=== PATIENT | male | born 1960 | race Hispanic/Latino ===

== ENCOUNTER → 2020-04-23 | Outpatient (CLI) | payer OTHER | END | disposition home or self-care (01) | LOC: EDSEX 13:16 → OIH 13:16 | PROVIDERS: ATTEND Internal Medicine | DX: S99.822A Other specified injuries of left foot, initial encounter (principal); S99.821A Other specified injuries of right foot, initial encounter; M06.4 Inflammatory polyarthropathy; M19.072 Primary osteoarthritis, left ankle and foot; M19.042 Primary osteoarthritis, left hand; M19.041 Primary osteoarthritis, right hand; M19.071 Primary osteoarthritis, right ankle and foot; X58.XXXA Exposure to other specified factors, initial encounter; Y93.89 Activity, other specified; Y92.89 Other specified places as the place of occurrence of the external cause; Y99.8 Other external cause status | CPT/HCPCS: 73630 ==

== ENCOUNTER → 2025-01-07 | Outpatient (CLI) | payer OTHER ==
[~2025-01-07] MED LIST: IOHEXOL-350 75 ML VIAL IV ONE
--- NOTE | 2025-01-08 14:55 | HMCIMG ---
EXAM: CT Abdomen with IV contrast CLINICAL HISTORY: Hepatomegaly, not elsewhere classified TECHNIQUE: Axial computed tomography images of the abdomen and pelvis with intravenous contrast. CONTRAST: with intravenous contrast. COMPARISON: None provided. FINDINGS: Lungs (visualized bases): Minimal bilateral pleural effusion.Multiple coarse ground-glass opacities in the bilateral lower lobes. Liver: Mildly shrunken liver, irregular and nodular margin, measures approximately. 11.5 cm. Multiple heterogeneously enhancing centrally and peripherally hypodense lesions are scattered in the left lobe and segment 7 of the right lobe. Largest lesion in segments 2 and 3 of the left lobe, approx. 11.5 x 11.7 mm by 12.2 cm (TR AP CC dimension).Similar lesions in the tail of Christian's left lobe. Homogeneous late arterial phase hyperenhancing lesion in segment 7 of the right lobe, 2.4 x 2.8 cm. Multiple tortuous periportal, peripancreatic, perisplenic, paraumbilical, retroperitoneal, and mesenteric collaterals. Portal vein not visualized, replaced by multiple collaterals, likely portal cavernoma formation, intrahepatic biliary dilatation. Gallbladder: Distended gallbladder with hyperdense calculus approx. 1.5 x 2 cm. Bile Ducts: No intrahepatic or extrahepatic biliary dilatation. Pancreas: No focal lesion. No peripancreatic fluid collection. Spleen: Spleen measures 18.8 cm, likely gross splenomegaly. Multiple perisplenic tortuous collaterals. Adrenals: Bilateral adrenal bulkiness. Kidneys: The bilateral kidney appears normal in size, shape, and corticomedullary differentiation. No hydronephrosis. Ureters: Both proximal ureters normal in course and caliber. Stomach: No mass or ulceration. Bowel: No evidence of obstruction, mass, or inflammatory changes. Peritoneum: Extensive mesenteric, retroperitoneal, perisplenic, periportal, peripancreatic, and paraumbilical collaterals. Lymph Nodes: Retroperitoneal and mesenteric lymphadenopathy. Bones: Degenerative changes in the spine, reduced L5-S1 intervertebral disc space with a vacuum phenomenon lytic or sclerotic lesions. Vasculature: Atherosclerotic vessel wall calcification of the abdominal aorta.IMPRESSION: 1. Cirrhosis with portal hypertension and cavernous transformation of the portal vein. 2. Multiple hepatic lesions, the largest measuring 11.5 x 11.7 x 12.2 cm in the left lobe, concerning for multifocal hepatocellular carcinoma. 3. Splenomegaly measuring 18.8 cm. 4. Extensive portosystemic collaterals. 5. Minimal bilateral pleural effusions with lower lobe ground-glass opacities. 6. Cholelithiasis with 1.5 x 2 cm gallstone. 7. Retroperitoneal and mesenteric lymphadenopathy. /[place]
== END | disposition home or self-care (01) ==
LOC: RAH 07:03
PROVIDERS: ATTEND Internal Medicine
DX: C22.0 Liver cell carcinoma (principal); K80.20 Calculus of gallbladder without cholecystitis without obstruction; K76.6 Portal hypertension; R16.2 Hepatomegaly with splenomegaly, not elsewhere classified; K82.8 Other specified diseases of gallbladder; M47.817 Spondylosis without myelopathy or radiculopathy, lumbosacral region; I70.0 Atherosclerosis of aorta; I69.322 Dysarthria following cerebral infarction; I67.1 Cerebral aneurysm, nonruptured; J84.10 Pulmonary fibrosis, unspecified; G56.40 Causalgia of unspecified upper limb; K74.60 Unspecified cirrhosis of liver; G47.09 Other insomnia; R77.1 Abnormality of globulin
CPT/HCPCS: 74160; Q9967

== ENCOUNTER 2025-04-08 11:26 | Inpatient (IN) | payer OTHER ==
[~2025-04-08] VITALS: Ht 172.7 cm; Wt 102.7 kg
--- NOTE | 2025-04-08 11:47 | ERN ---
ED Note History of Present Illness Stated Complaint: SENT BY DR ROBERTS Chief Complaint: Other Problems Time Seen by MD: 11:29 Dictation: PATIENT IS A 64-YEAR-OLD MALE COMING IN TODAY FROM OFFICE FOR ELEVATED LABS. THE PATIENT STATES THEY HE HAD HAD A VIDEO CONFERENCE WITH THE PA, THAT IS SOMETHING HAD DOUBLED AND TO GO TO THE EMERGENCY ROOM. STATES HE HAS A HISTORY OF NEWLY DIAGNOSED LIVER CA IN HIS PENDING THE INITIAL TREATMENT FROM THE ONCOLOGISTS, CURRENTLY HE HAS BEEN STAGED. PATIENT NOTED TO BE DEBILITATED AND JAUNDICED I CALLED THE ONCOLOGISTS OFFICE AND SPOKE TO TATY, SHE SAYS THAT PATIENT'S LFTS HAVE DOUBLED INCLUDING HIS BILIRUBIN AND HE WAS EVALUATED BY THE PA AND TOLD TO COME TO THE EMERGENCY ROOM FOR FURTHER EVALUATION AND POSSIBLE ADMISSI ON. Allergies: Coded Allergies: No Known Drug Allergies (Unverified Allergy, Unknown, 03/13/25) Home Meds No Active Prescriptions or Reported Meds Past Medical History Past Medical History: Cancer, Other Additional Past Medical Hx: H PYLORI, POOR HISTORIAN Surgical History: None RN Note Reviewed/Agreed w/PFSH: Yes Review of System Dictation CONSTITUTIONAL: NEGATIVE EXCEPT FOR HPI GB W HEAD/FACE: NEGATIVE EXCEPT FOR HPI EENT: NEGATIVE EXCEPT FOR HPI RESPIRATORY: NEGATIVE EXCEPT FOR HPI GASTROINTESTINAL/ABDOMINAL: NEGATIVE EXCEPT FOR HPI GENITOURINARY: NEGATIVE EXCEPT FOR HPI MUSCULOSKELETAL: NEGATIVE EXCEPT FOR HPI INTEGUMENTARY: NEGATIVE EXCEPT FOR HPI JAUNDICE NEUROLOGICAL/PSYCH: NEGATIVE EXCEPT FOR HPI HEMATOLOGIC/LYMPHATIC: NEGATIVE EXCEPT FOR HPI ALL SYSTEMS NEGATIVE, EXCEPT NOTED ABOVE. 13 POINT REVIEW OF SYSTEMS ASSESSED AND ALL NEGATIVE EXCEPT FOR ABOVE. Initial Vital Sign VS Vital Signs Date Time Temp Pulse Resp B/P (MAP) Pulse Ox O2 Delivery O2 Flow Rate FiO2 04/08/25 11:30 99.0 88 18 103/64 97 Room Air* 0 21 Physical Exam Dictation VITAL SIGNS REVIEWED GENERAL APPEARANCE: ALERT, ORIENTED X 3, NO ACUTE DISTRESS, WELL DEVELOPED, NOURISHED. HEAD AND FACE: NON-TRAUMATIC. EYES: PERRL, PINK CONJUNCTIVAS, EYELID NO TRAUMA, ANTERIOR CHAMBER WITH ARCUS SENILIS. EARS: PINNAS INTACT AND NO SIGNS OF TRAUMA OR ERYTHEMA EAR CANALS CLEAR AND NO DISCHARGE TM NO ERYTHEMA NOSE: NO DISCHARGE, NO BLEEDING. OROPHARYNX: MOUTH NORMAL, TONGUE PINK, PHARYNX CLEAR,NO ERYTHEMA, TONSILS NO EXUDATES, NO ABSCESSES NOTED, MUCOUS MEMBRANE MOIST NECK: SUPPLE, NON-TENDER, NO THYROMEGALY, NO MASSES, NO JVD, NO BRUITS BREAST:DEFERRED CHEST:NO TENDERNESS, NO CREPITUS, NO PARADOXICAL MOVEMENT, NO RETRACTIONS LUNGS:CLEAR, WELL-VENTILATED, SYMMETRIC, NO RALES, NO WHEEZING, NO RHONCHI, NO STRIDOR, GOOD BREATH SOUNDS BILATERALLY HEART: REGULAR RATE, REGULAR RHYTHM, NO MURMUR, NO GALLOPS VASCULAR: NO PERIPHERAL EDEMA, ABDOMEN: SOFT, POSITIVE BOWEL SOUNDS, NONDISTENDED, NO GUARDING, NONTENDER, NO REBOUND, NO MASSES MILD HEPATOMEGALY, NO SPLENOMEGALY, NO LEYVA'S SIGN, NO HERNIAS. RECTAL: DEFERRED GENITAL: DEFERRED NEUROLOGICAL: NORMAL SPEECH, MOTOR FUNCTION INTACT, SENSORY FUNCTION INTACT MUSCULOSKELETAL: NECK NONTENDER, FULL RANGE OF MOTION, BACK NONTENDER, FULL RANGE OF MOTION, EXTREMITIES: NONTENDER, FULL RANGE OF MOTION SKIN: COLOR JAUNDICE LYMPHATIC: DEFERRED Results (Laboratory/Radiology) Laboratory/Radiology Laboratory Tests Test 04/08/25 11:52 04/08/25 12:08 White Blood Count 4.6 K/uL (4.8-10.8) L Red Blood Count 3.21 MIL/uL (4.50-6.20) L Hemoglobin 10.4 g/dL (14.0-18.0) L Hematocrit 32.7 % (42-54) L Mean Corpuscular Volume 101.9 fL (79-99) H Mean Corpuscular Hemoglobin 32.4 pg (27.0-33.0) Mean Corpuscular Hemoglobin Concent 31.8 g/dL (32.0-36.0) L Red Cell Distribution Width 22.5 % (11.0-15.5) H Platelet Count 141 K/uL (130-400) Mean Platelet Volume 11.2 fL (7.5-10.5) H Immature Granulocyte % (Auto) 1.5 % (0-1) H Neutrophils (%) (Auto) 64.5 % (40.0-77.0) Lymphocytes (%) (Auto) 22.2 % (21.0-51.0) Monocytes (%) (Auto) 7.3 % (3.0-13.0) Eosinophils (%) (Auto) 3.0 % (0.0-8.0) Basophils (%) (Auto) 1.5 % (0.0-5.0) Neutrophils # (Auto) 3.0 K/uL (1.8-7.7) Lymphocytes # (Auto) 1.0 K/uL (1.0-4.8) Monocytes # (Auto) 0.3 K/uL (0.1-1.0) Eosinophils # (Auto) 0.14 K/uL (0.00-0.70) Basophils # (Auto) 0.07 K/uL (0.00-0.20) Absolute Immature Granulocyte (auto 0.07 K/uL (0-1) Segmented Neutrophils % 69 % (40-70) Lymphocytes % (Manual) 18 % (22-44) L Monocytes % (Manual) 6 % (2-9) Eosinophils % (Manual) 5 % (1-6) Basophils % (Manual) 1 % (0-2) Myelocytes % 1 % (0-0) H Nucleated Red Blood Cells 0.4 % (0.0-0.19) H Differential Comment MANUAL DIFFERENTIAL White Cell Morphology Comment Platelet Morphology Comment ADEQUATE Red Blood Cell Morphology See comments Prothrombin Time 12.1 SEC (9.6-11.6) H Prothromb Time International Ratio 1.15 (0.85-1.15) Activated Partial Thromboplast Time 30.7 SEC (26.3-35.5) Sodium Level 127 mmol/L (136-145) L Potassium Level 4.7 mmol/L (3.5-5.1) Chloride Level 98 mmol/L (101-111) L Carbon Dioxide Level 22 mmol/L (21-32) Blood Urea Nitrogen 20 mg/dL (7-18) H Creatinine 1.3 mg/dL (0.5-1.3) Glomerular Filtration Rate Calc 61 mL/min (>90) Random Glucose 111 mg/dL (70-105) H Total Calcium 8.9 mg/dL (8.5-10.1) Total Bilirubin 7.5 mg/dL (0.2-1.0) H Aspartate Amino Transf (AST/SGOT) 133 U/L (10-37) H Alanine Aminotransferase (ALT/SGPT) 22 U/L (12-78) Alkaline Phosphatase 155 U/L (50-136) H Ammonia < 10 umol/L (11-32) L Total Protein 9.3 g/dL (6.0-8.3) H Albumin 2.0 g/dL (3.5-5.0) L Lipase 39 U/L (16-77) Urine Color NICOLE (YELLOW) H Urine Appearance CLOUDY (CLEAR) H Urine pH 6.0 (5.0-8.0) Urine Specific [place] 1.025 (1.001-1.031) Urine Protein 30 mg/dL (NEGATIVE) H Urine Glucose (UA) NEGATIVE mg/dL (NEGATIVE) Urine Ketones 5 mg/dL (NEGATIVE) H Urine Occult Blood SMALL (NEGATIVE) H Urine Nitrate POSITIVE (NEGATIVE) H Urine Bilirubin MODERATE mg/dL (NEGATIVE) H Urine Urobilinogen 1.0 mg/dL (0.2-1.0) Urine Leukocyte Esterase NEGATIVE Gloria/uL Urine RBC 6-10 /HPF (0-1) H Urine WBC 0-1 /HPF (0-1) Urine Squamous Epithelial Cells Rare /HPF (0-2) Urine Bacteria Few /HPF (None Seen) Labs Reviewed?: Yes ED Course ED Course Orders Procedure Category Date Status Time Pt And Ptt LAB 04/08/25 Complete 11:43 Comprehensive LAB 04/08/25 Complete Metabolic Panel 11:43 Urinalysis Profile LAB 04/08/25 Complete 11:43 Lipase LAB 04/08/25 Complete 11:43 Cbc With Differential LAB 04/08/25 Complete 11:43 Ammonia LAB 04/08/25 Complete 11:43 Manual Differential LAB 04/08/25 Complete 11:52 Culture Urine JUAN 04/08/25 Logged 12:21 0.9%Nacl 1000ml (Ns PHA 04/08/25 Complete 1000ml) 13:30 Current Medications Medications (Trade) Dose Ordered Sig/John Route PRN Reason Start Time Stop Time Status Last Admin Dose Admin Sodium Chloride 1,000 ml @ 0 mls/hr ONCE ONCE IV 04/08/25 13:30 04/08/25 13:31 DC Vital Signs Date Time Temp Pulse Resp B/P (MAP) Pulse Ox O2 Delivery O2 Flow Rate FiO2 04/08/25 11:30 99.0 88 18 103/64 97 04/08/25 11:30 99.0 88 18 103/64 97 Room Air* 0 21 1345/PATIENT WILL BE ADMITTED TO THE [facility]OSP[facility] FOR ACUTE KIDNEY INJURY, ELEVATED LFTS, HYPONATREMIA DEHYDRATION. 1350/SPOKE WITH REVIEWED LABS AND INTERVENTIONS FOR VENKATESH DEHYDRATION HE AGREED TO ADMIT PATIENT. Medical Decision Making MDM MDM: DIFFERENTIAL DIAGNOSIS: LIVER CA/ELEVATED LIVER FUNCTION TESTS/ANEMIA/COAGULOPATHY/ELECTROLYTE IMBALANCE/DEHYDRATION/JAUNDICE RATIONALE: TESTS CONSIDERED AND ORDERED SECONDARY TO SHARED DECISION MAKING INCLUDE: LABS, AND RADIOLOGY PREVIOUS OUTSIDE RECORDS REVIEWED: OLD ER VISITS. RISK OF COMPLICATION AND/OR MORBIDITY OR MORTALITY OF PATIENT MANAGEMENT: MILD MEDICATIONS-PER MEDICATION RECONCILIATION NEED FOR HOSPITALIZATION: PATIENT DOES MEET CRITERIA FOR HOSPITALIZATION. PATIENT WILL NEED TO BE ADMITTED FOR VENKATESH REHYDRATION AND EVALUATION OF LFTS ROTATION WITH THE ONCOLOGISTS NEED FOR EMERGENCY MAJOR/MINOR SURGERY: NO THERE ARE NO SOCIAL CONCERNS WITH THIS PATIENT. PRESCRIPTION DRUG MANAGEMENT PRESCRIPTIONS WILL INCLUDE SYMPTOMATIC CARE PATIENT'S PRIOR EXTERNAL MEDICAL RECORDS FROM OTHER ER VISITS WERE REVIEWED BY ME INDICATED. PRIOR TESTING AND RESULTS FROM PREVIOUS VISITS WERE REVIEWED. PRIOR TESTS WERE TAKEN INTO ACCOUNT WITH MEDICAL DECISION MAKING AND RESOURCE UTILIZATION, INDEPENDENT HISTORIAN/HISTORIANS WERE USED TO OBTAIN COMPLETE MEDICAL HISTORY. I INDEPENDENTLY INTERPRETED THE TEST THAT WERE PERFORMED, RESULTS WERE REVIEWED BY ME AND CONSIDERED FINDINGS ON RADIOLOGY IF ORDERED. MEDICAL MANAGEMENT AND EXAMINATION INTERPRETATION DISCUSSIONS WERE HAD BY ME WITH OTHER QUALIFIED HEALTHCARE PROFESSIONALS INDICATED FOR THE PATIENT'S CARE. DX & DISP Disposition: Inpatient Decision to Admit Time: 13:44 Departure Impression: Primary Impression: Hyponatremia Additional Impressions: Hypochloremia, Elevated LFTs, Stage 3 chronic kidney disease, Anemia of chronic renal failure, stage 3a, Liver cancer Condition: Stable Scripts No Active Prescriptions or Reported Meds Referrals: CINDY ROBERT MD (PCP) Time of Disposition: 13:44 I have reviewed the case, and I agree with, Diagnosis and Plan [employer] Apr 08, 2025 11:47
[2025-04-08 12:00] LABS: IMMATURE GRANULOCYTE ABSOLUTE 0.07 K/uL (0-1); NUCLEATED RED BLOOD CELLS 0.4 % (0.0-0.19); PLATELET COUNT (AUTO) 141 K/uL (130-400); RED BLOOD CELL COUNT(AUTO) 3.21 MIL/uL (4.50-6.20); RED CELL DISTRIBUTION WIDTH 22.5 % (11.0-15.5); WHITE BLOOD COUNT (AUTO) 4.6 K/uL (4.8-10.8)
[2025-04-08 12:09] LABS: CREATININE 1.3 mg/dL (0.5-1.3); GLOMERULAR FILTR. RATE CALC 61 mL/min (>90); GLUCOSE,RANDOM 111 mg/dL (70-105); SODIUM SERUM 127 mmol/L (136-145); UREA NITROGEN, BLOOD 20 mg/dL (7-18)
[2025-04-08 12:14] LABS: ASPARTATE AMINOTRANSFERASE 133 U/L (10-37); TOTAL PROTEIN, SERUM 9.3 g/dL (6.0-8.3)
[2025-04-08 12:19] LABS: GLUCOSE, URINE (UA) NEGATIVE (NEGATIVE); LEUKOCYTE ESTERASE ,URINE NEGATIVE Leu/uL (NEGATIVE); NITRATE,URINE POSITIVE (NEGATIVE); OCCULT BLOOD,URINE SMALL (NEGATIVE)
[2025-04-08 12:20] LABS: ADD UA MICROSCOPIC YES; APPEARANCE,URINE CLOUDY (CLEAR)
[2025-04-08 12:34] LABS: INR 1.15 (0.85-1.15)
[2025-04-08 12:48] LABS: SQUAMOUS EPITHELIAL CELL,UR Rare /HPF (0-2)
[2025-04-08 12:53] LABS: BASOPHILS % (MANUAL) 1 % (0-2); EOSINOPHILS % (MANUAL) 5 % (1-6); LYMPHOCYTES % (MANUAL) 18 % (22-44); MAN.DIFF COMMENT-IMPRESSION MANUAL DIFFERENTIAL; MONOCYTES % (MANUAL) 6 % (2-9); MYELOCYTES % 1 % (0-0); SEGMENTED NEUTROPHILS % 69 % (40-70)
[2025-04-08 12:54] LABS: PLATELET MORPHOLOGY COMMENT ADEQUATE
[2025-04-08] MEDS: 0.9%NACL 1000ML 1,000 ML IV ONE (14:16)
--- NOTE | 2025-04-08 14:39 | NUR ---
DCP:HOME Pt currently lives at home with his sister Lorraine Farrell [phone]. Pt receives $21 in SNAP benefits. Pt has a cane at home. Pt denies any home health or provider services. pt states that he is able to complete ADLs independently. PCP is Dr. Flowers and uses [facility] for any RX needs. At DC pt will want to go home and family can assist with transportation.
--- NOTE | 2025-04-08 14:49 | NUR ---
WAS INFORMED TO BRING HOME MEDS SOON POSSIBLE.
--- NOTE | 2025-04-08 15:57 | NUR ---
REPORT GIVEN TO DOMINGO GOVEA
[2025-04-08 16:00] VITALS: O2SAT 95
[2025-04-08 20:00] VITALS: BP 111/79; PULSE 91; RESP 18; TEMP 98.1; O2SAT 95
--- NOTE | 2025-04-08 21:52 | HP ---
HISTORY AND PHYSICAL NOTE DATE OF CONSULTATION: 04/08/25 REASON FOR CONSULTATION: Weakness HISTORY OF PRESENT ILLNESS: PATIENT IS A 64-YEAR-OLD MALE COMING IN TODAY FROM OFFICE FOR ELEVATED LABS. THE PATIENT STATES THEY HE HAD HAD A VIDEO CONFERENCE WITH THE PA, THAT IS SOMETHING HAD DOUBLED AND TO GO TO THE EMERGENCY ROOM. STATES HE HAS A HISTORY OF NEWLY DIAGNOSED LIVER CA IN HIS PENDING THE INITIAL TREATMENT FROM THE ONCOLOGISTS, CURRENTLY HE HAS BEEN STAGED. PATIENT NOTED TO BE DEBILITATED AND JAUNDICED I CALLED THE ONCOLOGISTS OFFICE AND SPOKE TO TATY, SHE SAYS THAT PATIENT'S LFTS HAVE DOUBLED INCLUDING HIS BILIRUBIN AND HE WAS EVALUATED BY THE PA AND TOLD TO COME TO THE EMERGENCY ROOM FOR FURTHER EVALUATION AND POSSIBLE ADMISSION. Allergies: Coded Allergies: No Known Drug Allergies (Unverified Allergy, Unknown, 03/13/25) Home Meds No Active Prescriptions or Reported Meds Past Medical History Past Medical History: Cancer, Other Additional Past Medical Hx: H PYLORI, POOR HISTORIAN Surgical History: None RN Note Reviewed/Agreed w/PFSH: Yes Review of System Dictation CONSTITUTIONAL: NEGATIVE EXCEPT FOR HPI GB W HEAD/FACE: NEGATIVE EXCEPT FOR HPI EENT: NEGATIVE EXCEPT FOR HPI RESPIRATORY: NEGATIVE EXCEPT FOR HPI GASTROINTESTINAL/ABDOMINAL: NEGATIVE EXCEPT FOR HPI GENITOURINARY: NEGATIVE EXCEPT FOR HPI MUSCULOSKELETAL: NEGATIVE EXCEPT FOR HPI INTEGUMENTARY: NEGATIVE EXCEPT FOR HPI JAUNDICE NEUROLOGICAL/PSYCH: NEGATIVE EXCEPT FOR HPI HEMATOLOGIC/LYMPHATIC: NEGATIVE EXCEPT FOR HPI ALL SYSTEMS NEGATIVE, EXCEPT NOTED ABOVE. 13 POINT REVIEW OF SYSTEMS ASSESSED AND ALL NEGATIVE EXCEPT FOR ABOVE. Initial Vital Sign VS Vital Signs Date Time Temp Pulse Resp B/P (MAP) Pulse Ox O2 Delivery O2 Flow Rate FiO2 04/08/25 11:30 99.0 88 18 103/64 97 Room Air* 0 21 ALLERGIES: Coded Allergies: No Known Drug Allergies (Unverified Allergy, Unknown, 03/13/25) HOME MEDS: No Active Prescriptions or Reported Meds VITAL SIGNS Vital Signs Date Time Temp Pulse Resp B/P (MAP) Pulse Ox O2 Delivery O2 Flow Rate FiO2 04/08/25 20:00 98.1 91 18 111/79 95 Room Air 04/08/25 16:00 95 Room Air* 0 21 04/08/25 15:42 99.0 88 18 106/72 97 Room Air* 0 21 04/08/25 11:30 99.0 88 18 103/64 97 04/08/25 11:30 99.0 88 18 103/64 97 Room Air* 0 21 PHYSICAL EXAM VITAL SIGNS REVIEWED GENERAL APPEARANCE: ALERT, ORIENTED X 3, NO ACUTE DISTRESS, WELL DEVELOPED, NOURISHED. HEAD AND FACE: NON-TRAUMATIC. EYES: PERRL, PINK CONJUNCTIVAS, EYELID NO TRAUMA, ANTERIOR CHAMBER WITH ARCUS SENILIS. EARS: PINNAS INTACT AND NO SIGNS OF TRAUMA OR ERYTHEMA EAR CANALS CLEAR AND NO DISCHARGE TM NO ERYTHEMA NOSE: NO DISCHARGE, NO BLEEDING. OROPHARYNX: MOUTH NORMAL, TONGUE PINK, PHARYNX CLEAR,NO ERYTHEMA, TONSILS NO EXUDATES, NO ABSCESSES NOTED, MUCOUS MEMBRANE MOIST NECK: SUPPLE, NON-TENDER, NO THYROMEGALY, NO MASSES, NO JVD, NO BRUITS BREAST:DEFERRED CHEST:NO TENDERNESS, NO CREPITUS, NO PARADOXICAL MOVEMENT, NO RETRACTIONS LUNGS:CLEAR, WELL-VENTILATED, SYMMETRIC, NO RALES, NO WHEEZING, NO RHONCHI, NO STRIDOR, GOOD BREATH SOUNDS BILATERALLY HEART: REGULAR RATE, REGULAR RHYTHM, NO MURMUR, NO GALLOPS VASCULAR: NO PERIPHERAL EDEMA, ABDOMEN: SOFT, POSITIVE BOWEL SOUNDS, NONDISTENDED, NO GUARDING, NONTENDER, NO REBOUND, NO MASSES MILD HEPATOMEGALY, NO SPLENOMEGALY, NO LEYVA'S SIGN, NO HERNIAS. RECTAL: DEFERRED GENITAL: DEFERRED NEUROLOGICAL: NORMAL SPEECH, MOTOR FUNCTION INTACT, SENSORY FUNCTION INTACT MUSCULOSKELETAL: NECK NONTENDER, FULL RANGE OF MOTION, BACK NONTENDER, FULL RANGE OF MOTION, EXTREMITIES: NONTENDER, FULL RANGE OF MOTION SKIN: COLOR JAUNDICE LYMPHATIC: DEFERRED LABORATORY RESULTS Laboratory Tests 04/08/25 11:52: White Blood Count 4.6, Red Blood Count 3.21, Hemoglobin 10.4, Hematocrit 32.7, Mean Corpuscular Volume 101.9, Mean Corpuscular Hemoglobin 32.4, Mean Corpuscular Hemoglobin Concent 31.8, Red Cell Distribution Width 22.5, Platelet Count 141, Mean Platelet Volume 11.2, Immature Granulocyte % (Auto) 1.5, Neutrophils (%) (Auto) 64.5, Lymphocytes (%) (Auto) 22.2, Monocytes (%) (Auto) 7.3, Eosinophils (%) (Auto) 3.0, Basophils (%) (Auto) 1.5, Neutrophils # (Auto) 3.0, Lymphocytes # (Auto) 1.0, Monocytes # (Auto) 0.3, Eosinophils # (Auto) 0.14, Basophils # (Auto) 0.07, Absolute Immature Granulocyte (auto 0.07, Segmented Neutrophils % 69, Lymphocytes % (Manual) 18, Monocytes % (Manual) 6, Eosinophils % (Manual) 5, Basophils % (Manual) 1, Myelocytes % 1, Nucleated Red Blood Cells 0.4, Differential Comment MANUAL DIFFERENTIAL, White Cell Morphology Comment , Platelet Morphology Comment ADEQUATE, Red Blood Cell Morphology See comments, Prothrombin Time 12.1, Prothromb Time International Ratio 1.15, Activated Partial Thromboplast Time 30.7, Sodium Level 127, Potassium Level 4.7, Chloride Level 98, Carbon Dioxide Level 22, Blood Urea Nitrogen 20, Creatinine 1.3, Glomerular Filtration Rate Calc 61, Random Glucose 111, Total Calcium 8.9, Total Bilirubin 7.5, Aspartate Amino Transf (AST/SGOT) 133, Alanine Aminot ransferase (ALT/SGPT) 22, Alkaline Phosphatase 155, Ammonia < 10, Total Protein 9.3, Albumin 2.0, Lipase 39 04/08/25 12:08: Urine Color NICOLE, Urine Appearance CLOUDY, Urine pH 6.0, Urine Specific [place] 1.025, Urine Protein 30, Urine Glucose (UA) NEGATIVE, Urine Ketones 5, Urine Occult Blood SMALL, Urine Nitrate POSITIVE, Urine Bilirubin MODERATE, Urine Urob ilinogen 1.0, Urine Leukocyte Esterase NEGATIVE, Urine RBC 6-10, Urine WBC 0-1, Urine Squamous Epithelial Cells Rare, Urine Bacteria Few PROBLEM LIST: (1) Hyponatremia ICD Codes: E87.1 - Hypo-osmolality and hyponatremia (2) Liver cancer ICD Codes: C22.9 - Malignant neoplasm of liver, not specified as primary or secondary (3) Elevated LFTs ICD Codes: R79.89 - Other specified abnormal findings of blood chemistry (4) Anemia of chronic renal failure, stage 3a ICD Codes: N18.31 - Chronic kidney disease, stage 3a; D63.1 - Anemia in chronic kidney disease (5) Stage 3 chronic kidney disease ICD Codes: N18.30 - Chronic kidney disease, stage 3 unspecified PLAN Declining functional status poor medical compliance consult palliative care CINDY ROBERT MD Apr 08, 2025 21:52
[2025-04-09] VITALS: BP 105/68; PULSE 67; RESP 21; TEMP 97.5
[2025-04-09 04:00] VITALS: BP 129/69; PULSE 92; RESP 18; TEMP 97.4
[2025-04-09 05:48] LABS: IMMATURE GRANULOCYTE ABSOLUTE 0.07 K/uL (0-1); NUCLEATED RED BLOOD CELLS 0.0 % (0.0-0.19); PLATELET COUNT (AUTO) 117 K/uL (130-400); RED BLOOD CELL COUNT(AUTO) 2.91 MIL/uL (4.50-6.20); RED CELL DISTRIBUTION WIDTH 23.2 % (11.0-15.5); WHITE BLOOD COUNT (AUTO) 4.1 K/uL (4.8-10.8)
[2025-04-09 06:02] LABS: ASPARTATE AMINOTRANSFERASE 126.0 U/L (10-37); CREATININE 1.3 mg/dL (0.5-1.3); GLOMERULAR FILTR. RATE CALC 61.0 mL/min (>90); GLUCOSE,RANDOM 114.0 mg/dL (70-105); SODIUM SERUM 129.0 mmol/L (136-145); TOTAL PROTEIN, SERUM 8.6 g/dL (6.0-8.3); UREA NITROGEN, BLOOD 17.0 mg/dL (7-18)
[2025-04-09 07:46] VITALS: BP 106/73; PULSE 85; RESP 18; TEMP 97.6
[2025-04-09] MEDS: 0.9%NACL 1000ML 1,000 ML IV SCH (09:34)
[2025-04-09 09:45] VITALS: O2SAT 95
[2025-04-09 11:44] VITALS: BP 97/67; PULSE 87; RESP 18; TEMP 98.4
--- NOTE | 2025-04-09 12:43 | CONS ---
GASTROENTEROLOGY CONSULTATION NOTE Date of Consultation: Apr 09, 2025 Time of Consultation: 12:43 History of Present Illness: [ ] Review of Systems: CONSTITUTIONAL: No malaise or change in sensation of wellbeing. ENMT: No rhinorrhea, otorrhea, sinus pain, ear ache. CARDIOVASCULAR: No angina, palpitations, orthopnea or paroxysmal dyspnea. RESPIRATORY: No SOB. GASTROINTESTINAL: No abdominal pain, nausea, vomiting, diarrhea, hematemesis, melena or change in the patient's habitual bowel movements consistency/number. GENITOURINARY: No dysuria, hematuria or change in bladder continence. MUSCULOSKELETAL: No new muscle pain or decrease in muscular strength. No new joint swelling, redness or tenderness. SKIN: No new rash. Past Medical History: [ ] Past Surgical History: [ ] Past Social History: [ ] Family History: [ ] Coded Allergies: No Known Drug Allergies (Unverified Allergy, Unknown, 03/13/25) Physical Exam: GEN: Awake, alert, oriented in person, time and place, and in no acute distress. HEENT: No sinus tenderness. Tympanic membranes were not examined. No rhinorrhea. Oral pharyngeal mucosa is pink, moist and within normal limits. Neck is supple with no cervical lymphadenopathy, thyromegaly or JVD. CHEST: Inspection, palpation and percussion of the chest were unremarkable. Lung auscultation revealed normal breath sounds bilaterally. CARDIAC: PMI is within normal limits. Heart sounds are regular. Normal S1, S2. No gallop or murmur. ABD: Soft, non-tender and not distended. No peritoneal signs on palpation. No organomegaly. Normal bowel sounds. EXT: No cyanosis or clubbing. No edema. SKIN: Intact. No rashes. JOINTS: No evidence of synovitis or acute arthritis. NEURO: Alert and oriented to name, place and person. Cranial nerve examination is unremarkable. No focal motor deficits. Normal speech. Gait is normal. Strength is normal. Vital Sign (Last 24 Hours) 04/08/25 04/09/25 20:00 11:44 Temp 98.4 Pulse 87 Resp 18 B/P (MAP) 97/67 Pulse Ox 95 O2 Delivery Room Air O2 Flow Rate 0 FiO2 21 Intake & Output (last 24hrs) 04/08/25 04/08/25 04/09/25 15:00 23:00 07:00 Intake Total 0 ml Balance 0 ml Laboratory: [ ] Laboratory: Test 04/09/25 05:43 04/08/25 12:08 04/08/25 11:52 Range/Units White Blood Count 4.1 L 4.8-10.8 K/uL Red Blood Count 2.91 L 4.50-6.20 MIL/uL Hemoglobin 9.4 L 14.0-18.0 g/dL Hematocrit 29.8 L 42-54 % Mean Corpuscular Volume 102.4 H 79-99 fL Mean Corpuscular Hemoglobin 32.3 27.0-33.0 pg Mean Corpuscular Hemoglobin Concent 31.5 L 32.0-36.0 g/dL Red Cell Distribution Width 23.2 H 11.0-15.5 % Platelet Count 117 L 130-400 K/uL Mean Platelet Volume 10.6 H 7.5-10.5 fL Immature Granulocyte % (Auto) 1.7 H 0-1 % Neutrophils (%) (Auto) 61.4 40.0-77.0 % Lymphocytes (%) (Auto) 24.6 21.0-51.0 % Monocytes (%) (Auto) 7.5 3.0-13.0 % Eosinophils (%) (Auto) 3.6 0.0-8.0 % Basophils (%) (Auto) 1.2 0.0-5.0 % Neutrophils # (Auto) 2.5 1.8-7.7 K/uL Lymphocytes # (Auto) 1.0 1.0-4.8 K/uL Monocytes # (Auto) 0.3 0.1-1.0 K/uL Eosinophils # (Auto) 0.15 0.00-0.70 K/uL Basophils # (Auto) 0.05 0.00-0.20 K/uL Absolute Immature Granulocyte (auto 0.07 0-1 K/uL Nucleated Red Blood Cells 0.0 0.0-0.19 % Sodium Level 129 L 136-145 mmol/L Potassium Level 3.9 3.5-5.1 mmol/L Chloride Level 101 101-111 mmol/L Carbon Dioxide Level 21 21-32 mmol/L Blood Urea Nitrogen 17 7-18 mg/dL Creatinine 1.3 0.5-1.3 mg/dL Glomerular Filtration Rate Calc 61 >90 mL/min Random Glucose 114 H 70-105 mg/dL Total Calcium 8.3 L 8.5-10.1 mg/dL Total Bilirubin 6.6 H 0.2-1.0 mg/dL Aspartate Amino Transf (AST/SGOT) 126 H 10-37 U/L Alanine Aminotransferase (ALT/SGPT) 23 12-78 U/L Alkaline Phosphatase 151 H 50-136 U/L Total Protein 8.6 H 6.0-8.3 g/dL Albumin 1.8 L 3.5-5.0 g/dL Urine Color NICOLE H YELLOW Urine Appearance CLOUDY H CLEAR Urine pH 6.0 5.0-8.0 Urine Specific [place] 1.025 1.001-1.031 Urine Protein 30 H NEGATIVE mg/dL Urine Glucose (UA) NEGATIVE NEGATIVE mg/dL Urine Ketones 5 H NEGATIVE mg/dL Urine Occult Blood SMALL H NEGATIVE Urine Nitrate POSITIVE H NEGATIVE Urine Bilirubin MODERATE H NEGATIVE mg/dL Urine Urobilinogen 1.0 0.2-1.0 mg/dL Urine Leukocyte Esterase NEGATIVE NEGATIVE Gloria/uL Urine RBC 6-10 H 0-1 /HPF Urine WBC 0-1 0-1 /HPF Urine Squamous Epithelial Cells Rare 0-2 /HPF Urine Bacteria Few None Seen /HPF Segmented Neutrophils % 69 40-70 % Lymphocytes % (Manual) 18 L 22-44 % Monocytes % (Manual) 6 2-9 % Eosinophils % (Manual) 5 1-6 % Basophils % (Manual) 1 0-2 % Myelocytes % 1 H 0-0 % Differential Comment MANUAL DIFFERENTIAL White Cell Morphology Comment Platelet Morphology Comment ADEQUATE Red Blood Cell Morphology See comments Prothrombin Time 12.1 H 9.6-11.6 SEC Prothromb Time International Ratio 1.15 0.85-1.15 Activated Partial Thromboplast Time 30.7 26.3-35.5 SEC Ammonia < 10 L 11-32 umol/L Lipase 39 16-77 U/L Current Medications Medications (Trade) Dose Ordered Sig/John Route PRN Reason Start Time Stop Time Status Last Admin Dose Admin Sodium Chloride 1,000 ml @ 40 mls/hr Q24H IV 04/09/25 08:00 05/09/25 07:59 04/09/25 09:34 40 MLS/HR Diagnostics / Radiology: [COPY/PASTE HERE IF NO REPORTS PLEASE DELETE SECTION] Assessment: [ ] Plan: [ ] JAROD ANDREW [facility] Apr 09, 2025 12:43
[2025-04-09] MEDS ORDERED: OMEP40CA21 PO (12:46)
[2025-04-09] MEDS ORDERED: METR-172 PO (12:46)
[2025-04-09] MEDS ORDERED: TETR-68 PO (12:46)
--- NOTE | 2025-04-09 13:45 | NUR ---
AMA DR ROBERT MADE AWARE PT WANTS TO LEAVE AMA
--- NOTE | 2025-04-09 14:00 | NUR ---
Pt. requested to leave AMA--warned of risks of leaving AMA--including , verbalized understanding. Peripheral IV removed, hemostasis achieved. No acute distress noted. Dc'd home via private vehicle.
--- NOTE | 2025-04-09 15:08 | HMCIMG ---
INDICATION: liver cancer. COMPARISON: Prior CT from 01/07/2025 is available. TECHNIQUE: High resolution sonographic examination was performed of the right upper quadrant abdomen. FINDINGS: LIVER: The liver measures 14.4 cm. There are multiple lesions seen throughout the liver the largest in the left lobe measuring 1.4 x 1.1 x 1.4 cm.. PORTAL VEIN: The portal vein is patent with normal antegrade flow. BILIARY: The gallbladder has multiple gallstones and sludge. The gallbladder wall is thickened measuring 0.4 cm.. CBD is not visualized.. RIGHT KIDNEY: Right renal length is 11.6 x 5.5 x 6.8 cm. No visible solid mass, calculus, or hydronephrosis. PANCREAS: Normal. No visible mass or ductal dilatation. AORTA/IVC/VASCULAR: No visible aneurysm. The intrahepatic IVC is patent. OTHER: Negative. IMPRESSION: Cholelithiasis with thickened gallbladder wall suggesting of acute cholecystitis Multiple lesion seen throughout the liver suggesting of malignancy which correlates with the CT finding.
--- NOTE | 2025-04-09 20:56 | CONS ---
HEMATOLOGY CONSULTATION HISTORY OF PRESENT ILLNESS: This is a 64-year-old male patient with hepatocellular carcinoma admitted to hospital for complaints of general weakness and possible GI bleeding. His H and H has been stable. He reports that his appetite has improved. He denies any abdominal pain. He is under treatment with Lenvima and followed by Dr. Chang. PHYSICAL EXAMINATION: VITAL SIGNS: Stable. Afebrile. GENERAL: The patient was alert, in no acute distress. HEART: Regular rate and rhythm LUNGS: With diminished breathing sounds at both bases. No crackles. ABDOMEN: Soft, distended with hepatomegaly. Bowel sounds present. EXTREMITIES: No pitting edema. No calf tenderness. LABORATORY DATA: Reviewed. ASSESSMENT: * Hepatocellular carcinoma. * Possible GI bleeding. PLAN: The patient continues with significant jaundice. I will order an ultrasound to evaluate for any possible bile duct dilation or obstruction. Otherwise, continue to monitor with lab work and monitor for GI bleeding. I discussed with the patient about also comfort measures, but he is not ready. I will continue to monitor with lab work. TID: [id number] RECEIPT: [id number]
--- NOTE | 2025-04-11 18:19 | DS ---
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
== END 2025-04-09 14:07 | disposition left against medical advice (07) | DRG 641 ==
LOC: EDH 11:26 → EDHIP 14:28 → 1MS 17:59 → OBSVTOIN 04-09 09:06
PROVIDERS: ADMIT Internal Medicine; ATTEND Internal Medicine
DX: E87.1 Hypo-osmolality and hyponatremia (principal); C22.0 Liver cell carcinoma; D63.1 Anemia in chronic kidney disease; N18.31 Chronic kidney disease, stage 3a; E87.8 Other disorders of electrolyte and fluid balance, not elsewhere classified; Z85.05 Personal history of malignant neoplasm of liver
CPT/HCPCS: 36415; 76705; 80053; 81001; 82140; 83690; 85025; 85610; 85730; 87086; 99285; G0378